=== PATIENT | female | born 1955 | race Caucasian/White ===

== ENCOUNTER 2023-08-24 19:29 | Emergency (ER) | payer OTHER, SELFPAY ==
[2023-08-24 19:33] VITALS: BP 154/93
[2023-08-24 20:15] VITALS: BMI 33.5
[2023-08-24] MEDS: TYLENOL 1000 MG PO (20:26)
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
[2023-08-24] MEDS: ADACEL 0.5 ML IM (20:49)
== END 2023-08-24 20:56 | disposition home or self-care (01) ==
LOC: EMR 19:29
PROVIDERS: EMERGENCY PHYSICIAN Emergency Medicine; FAMILY PHYSICIAN Family Medicine
DX: S00.03XA Contusion of scalp, initial encounter (principal); S00.01XA Abrasion of scalp, initial encounter; V86.79XA Person on outside of other special all-terrain or other off-road motor vehicles injured in nontraffic accident, initial encounter; Y92.410 Unspecified street and highway as the place of occurrence of the external cause; G70.00 Myasthenia gravis without (acute) exacerbation; Q24.5 Malformation of coronary vessels; K21.9 Gastro-esophageal reflux disease without esophagitis; E78.00 Pure hypercholesterolemia, unspecified; Z79.02 Long term (current) use of antithrombotics/antiplatelets
CPT/HCPCS: 99284; 90471; 70450; 90715